=== PATIENT | male | born 1960 | race Caucasian/White ===

== ENCOUNTER 2016-11-30 17:07 | Inpatient (IN) | payer OTHER ==
[~2016-11-30] VITALS: Ht 175.3 cm; Wt 59.6 kg
[2016-11-30] MEDS ORDERED: BACTRIM DS 8001 TAB PO (17:47)
[2016-11-30] MEDS ORDERED: MIRALAX PA17 GM/Dose PO (17:47)
[2016-11-30 17:56] LABS: BASO % 0.3 % (0.0-2.0); EOS # 0.1 (0.0-0.7); EOS % 1.3 % (0-4.0); GRAN # 3.2 (1.4-6.5); GRAN % 50.7 % (42.2-75.2); HEMATOCRIT 43.2 % (42.0-52.0); HEMOGLOBIN 14.9 g/dl (13.5-18.0); LYMPH # 2.5 (1.2-3.4); LYMPH % 38.5 % (20.0-51.0); MEAN CELL VOLUME 96 fl (80.0-100.0); MEAN CORPUSCULAR HEMOGLOBIN 33 pg (27.0-31.0); MEAN CORPUSCULAR HGB CONC 35 g/dl (33.0-37.0); MEAN PLATELET VOLUME 9.5 fl (7.4-10.4); MONO # 0.6 (0.1-0.6); MONO % 8.9 % (1.7-9.3); PLATELET COUNT 178 K/mm3 (130-400); RED BLOOD COUNT 4.48 M/mm3 (4.20-5.60); REDCELL DISTRIBUTION WIDTH-CV 12.5 % (11.5-14.5); WHITE BLOOD COUNT 6.4 K/mm3 (4.8-10.8)
[2016-11-30 18:02] LABS: PH 5 (5-8); SQUAMOUS EPITHELIAL 0-2 /hpf; URINE APPEARANCE Hazy; URINE BACTERIA None Seen /hpf; URINE BILIRUBIN Negative (NEGATIVE); URINE BLOOD 3+ (NEGATIVE); URINE COLOR Yellow; URINE GLUCOSE Negative (NEGATIVE); URINE KETONE Negative (NEGATIVE); URINE RBC >50 /hpf; URINE UROBILINOGEN >=4.0 mg/dL (NEGATIVE)
[2016-11-30 18:07] LABS: ADJUSTED CALCIUM 9.3 mg/dL (8.4-10.2); ALBUMIN 4.7 gm/dL (3.5-5.0); BILIRUBIN,TOTAL 0.7 mg/dL (0.0-1.0); CALCIUM 9.9 mg/dL (8.4-10.2); CREATININE, serum 0.91 mg/dL (0.66-1.25); POTASSIUM 4.2 mmol/L (3.4-5.0); TOTAL PROTEIN 8.1 gm/dL (6.4-8.2)
[2016-11-30] MEDS ORDERED: ADVIL200 MG PO (23:10)
[2016-12-01] VITALS (7 sets, daily range): BP systolic 134–162; BP diastolic 76–88; PULSE 47–68; TEMP 97.3–98.5
[2016-12-02 01:55] VITALS: BP 147/90; PULSE 69; TEMP 98.3
[2016-12-02 05:50] VITALS: BP 147/88; PULSE 56; TEMP 98
[2016-12-02 09:33] VITALS: BP 154/85; PULSE 51; TEMP 98
== END 2016-12-02 20:00 | disposition home or self-care (01) | DRG 670 ==
LOC: COL.ER 17:07 → SURG 19:13
PROVIDERS: Emergency Medicine; Urology
PROC: 0TC77ZZ Extirpation of Matter from Left Ureter, Via Natural or Artificial Opening (ICD-10-PCS; principal; 2016-12-02 14:00)
DX: N20.1 Calculus of ureter (principal)
CPT/HCPCS: J0690; J1885; J1940; J2270; J2405; J2704; J2765; J7030; J7120

== ENCOUNTER → 2019-07-13 | Outpatient (CLI) | payer BC ==
[~2019-07-13] MED LIST: ADVIL200 MG PO; BACTRIM DS 8001 TAB PO; MIRALAX PA17 GM/Dose PO
== END ==
LOC: COL.RAD 07:26
DX: I70.8 Atherosclerosis of other arteries (principal); N20.0 Calculus of kidney
CPT/HCPCS: Q9967